=== PATIENT | female | born 1935 | race Caucasian/White ===

== ENCOUNTER 2017-07-10 19:03 | Inpatient (IN) | payer MEDICARE, MEDICAID ==
[~2017-07-10] VITALS: Ht 157.4 cm; Wt 65.9 kg
--- NOTE | ~2017-07-10 | PR ---
[place], [place] PROGRESS NOTE NAME: TAHMINA GARZA UNIT #: [id number] ROOM: 310 DOCTOR: PARIS SANFORD DO BIRTHDATE: [birth year] DOS: 07/17/2017 CHIEF COMPLAINT: "Good morning." SUMMARY OF THE VISIT: The patient was interviewed in the dining dougherty while sitting in a wheelchair. The patient's eyes were closed during the entire interview process. When asked if she could open her eyes, the patient states aha, but does not actually open her eyes. Per nursing, the patient continues to have poor p.o. intake and now has progressed to where the patient has started spitting food, liquids as well as medications. Nursing also stated that the patient did not really move at all yesterday. The patient herself is very vague in answering questions. When asked if she slept well, she only responded with okay. MENTAL STATUS EXAMINATION: The patient is alert and oriented to person, but not to place or time. Mood is labile. There is no michael or hypomania. No gross psychotic symptoms. Short-term memory is very poor. PLAN: 1. Renew Ativan. 2. Decrease Risperdal to 0.5 grams at bedtime. 3. We will continue to engage the patient in individual and mendoza milieu activity, returning to the least restrictive environment when psychiatrically stable. Discharge will depend on medical and psychiatric status at that time. ADDENDUM Dr. Garcia 07/26/17 10:48 am: Above note reviewed. Agree with observations, recommendations, and overall treatment plan. Paris Sanford DO [place], [place] PROGRESS NOTE NAME: TAHMINA GARZA UNIT #: [id number] ROOM: 310 DOCTOR: PARIS SANFORD DO BIRTHDATE: [birth year] LISBETH GARCIA MD CM:PNSAMI [id number] PARIS SANFORD DO 07/26/17 1054 COSME PRINGLE MIS.LLR
--- NOTE | ~2017-07-10 | CON ---
[place], [place] REPORT OF CONSULTATION NAME: TAHMINA GARZA UNIT #: [id number] ROOM: 310 DOCTOR: ANGELA BROWN ED.D (ESME) BIRTHDATE: [birth year] DOS: 07/16/2017 HISTORY OF PRESENT ILLNESS: The patient is an 82-year-old female referred by Dr. Evans for competency evaluation. At the present time, this patient is on the [facility] at [facility]. She states she does have 2 children, but believes they are 12 years old. She does not know who her family physician is. She has been residing at [facility] in [place], [place]. Her medical history is pertinent for dementia with behavioral disturbance, hyperlipidemia, coronary artery disease, GERD, hypertension, hypothyroidism, osteoarthritis, vitamin D deficiency, pseudobulbar effect and thyroid disease. MEDICATIONS: Include Exelon patch, Namenda, Risperdal, atorvastatin, losartan, hydrochlorothiazide, Synthroid. She has no history of drugs and alcohol, but did smoke at one time, but quit many years ago. She was awake, alert and oriented to person only. She had no idea where she was or what year it was or how old she is. She had no idea where she lives at this time. She has no idea where her children are. She is clearly demented. She became extremely agitated at the half-way recently and was transferred for inpatient care and psychiatric stabilization. 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 RECOMMENDATIONS: In my opinion, this patient needs a guardian. Thank you very much for this consult. ANGELA BROWN ED.D CM:CONSTR:REPORT OF CONSULTATION 1147 07/16/17 6307 interface LISBETH EVANS MD
--- NOTE | ~2017-07-10 | PR ---
[place], [place] PROGRESS NOTE NAME: TAHMINA GARZA UNIT #: [id number] ROOM: 310 DOCTOR: LISBETH GARCIA MD BIRTHDATE: [birth year] DOS: 07/15/2017 CHIEF COMPLAINT: "I am tired." SUMMARY OF THE VISIT: The patient was interviewed as she was resting quietly in bed. She engaged in brief conversation, was rather dismissive because she seems so tired. Nurses report, she had a very bad night and tossed and turned and was somewhat agitated. She is tolerating the current medication regimen well and notes no side effects from the medicines themselves. MENTAL STATUS: She is alert and oriented to person, possibly place, not time. Mood does seem to be trending towards euthymia and affect is more appropriate. There is no michael or hypomania. No gross psychosis. Short term memory is exceedingly poor. PLAN: I will change her Risperdal from 0.5 in the morning and 1 mg at night, just at bedtime and utilize a [address], we will lessen the possibility of daytime somnolence and improves sedation at nighttime when she needs it. LISBETH GARCIA MD CM:PNTRANS [phone] LISBETH GARCIA MD 07/15/17 4781 interface
--- NOTE | ~2017-07-10 | WRIGHTHP ---
[place], [place] PATIENT HISTORY AND PHYSICAL EXAM NAME: TAHMINA GARZA UNIT #: [id number] ROOM: 310 DOCTOR: LISBETH GARCIA MD BIRTHDATE: [birth year] DOS: 07/11/2017 CHIEF COMPLAINT: "I don't know why I am here." HISTORY OF PRESENT ILLNESS: This is an 82-year-old white female who resides at [facility] in [place], [place]. The patient was seen on the day prior to her admission by the nurse practitioner, Keshia Rothman, who evaluated her and found her to have significant altered mental status. The patient has been escalating over the last several weeks, culminating in her attempting to elope the facility by climbing out of a window. Attempts to redirect her were met with her becoming increasingly verbal and physically aggressive towards staff and even threatening patients there. Because her behavior has continued to spiral out of control to the point where she is putting both herself and other individuals at risk for harm. She was sent here to be evaluated to rule out organic factors, to stabilize on medication, returning then to the least restrictive environment when psychiatrically stable. PAST MEDICAL HISTORY: Remarkable for Alzheimer's dementia, coronary artery disease, generalized anxiety disorder, GERD, hyperlipidemia, hypertension, hypothyroidism, osteoarthritis, vitamin D deficiency, and pseudobulbar affect. SOCIAL HISTORY: The patient does not consume alcohol use, illicit drugs. She is a former cigarette smoker. ALLERGIES: She lists no known allergies. STRENGTHS: She has good verbal skills and she lives in a very supportive environment. MENTAL STATUS: The patient is alert and oriented to person, possibly place, certainly not time. Her responses this morning were rather vague and superficial and she tended to be rather dismissive and minimizing of any issues. She was pleasant, however, and did not exhibit any agitation or aggression towards me during the interview. I did not see the presence of any hypomania or michael. Likewise I saw no auditory or visual hallucinations. She does process slowly and short-term memory continues to be somewhat problematic. DIAGNOSIS: Brief psychotic disorder. PLAN: At this point, routine screening examinations have been done to rule out organic factors. She has been started on Exelon patch 4.6 mg a day and Namenda 5 mg a day in order to impact positively on ADL maintenance, behavior and cognition. Additionally, she has remained on Risperdal 0.5 mg twice daily to combat the mood lability and combativeness. We will engage her in individual and mendoza milieu activity, returning then to the least restrictive environment when psychiatrically stable. [place], [place] PATIENT HISTORY AND PHYSICAL EXAM NAME: TAHMINA GARZA UNIT #: [id number] ROOM: 310 DOCTOR: LISBETH GARCIA MD BIRTHDATE: [birth year] LISBETH GARCIA MD CM:HISPHYS:PATIENT HISTORY AND PHYSICAL EXAMINATION [id number] LISBETH GARCIA MD 07/11/17 1024 interface
--- NOTE | ~2017-07-10 | DS ---
[place], [place] DISCHARGE SUMMARY NAME: TAHMINA GARZA UNIT #: [id number] ROOM: 310 DOCTOR: LISBETH GARCIA MD BIRTHDATE: [birth year] DOS: 07/18/2017 CHIEF COMPLAINT: "I don't know why I am here." HISTORY OF PRESENT ILLNESS: This is an 82-year-old white female who resides at [facility][1] in [place], [place]. The patient was seen on the day prior to her admission by the nurse practitioner, Keshia Rothman who evaluated her and found her to have significant altered mental status. The patient has been escalating over the last several weeks, culminating in her attempting to elope the facility by climbing out a window. Attempts to redirect her were met with her becoming increasingly verbal and physically aggressive towards staff and even threatening the patients there. Because her behavior has continued to spiral out of control to the point where she is putting both herself and other individuals at risk for harm, she was sent to be evaluated here to rule out organic factors, to stabilize on medication, to engage in individual and mendoza milieu activity, returning then to the least restrictive environment when psychiatrically stable. PAST MEDICAL HISTORY: Remarkable for Alzheimer's dementia, coronary artery disease, generalized anxiety disorder, GERD, hyperlipidemia, hypertension, hypothyroidism, osteoarthritis, vitamin D deficiency, and pseudobulbar affect. SUMMARY: The patient does not consume alcohol, use illicit drugs. She is a former cigarette smoker. ALLERGIES: She lists no allergies. STRENGTHS: She has good verbal skills and lives in a supportive environment. WEAKNESSES: She is grossly confused and has many medical comorbidities. SUMMARY of her stay: The patient was admitted to the unit where she was started on Exelon patch 4.6 mg daily and Namenda 5 mg a day in order to impact positively on ADL maintenance, behavior and cognition. Additionally, she was maintained on Risperdal 0.5 mg twice daily. The Risperdal dose was gradually increased during her stay to a maximum of 0.5 mg in the morning and 2 mg at nighttime. Simultaneously both the Exelon patch and the Namenda were increased to their maximum doses with the Exelon patch ultimately being stabilized at 13.3 mg daily and Namenda to 10 mg twice daily. While on the higher dose of Risperdal, the patient did exhibit excess sedation, daytime somnolence and some mild drooling due to extrapyramidal symptoms. At that point in time, the dose of the Risperdal was significantly pulled back down to just 0.5 mg at bedtime. With these medications intact, the patient became much more compliant. She did not attempt to elope the facility. She was not verbally or physically aggressive. She was able to be redirected with verbal prompts. The patient had improved sufficiently then to return back to [facility][1] on 07/18/2017. MENTAL STATUS AT DISCHARGE: The patient is alert and oriented to self. Unclear if she realizes she is in the hospital. She is certainly not oriented to time. Mood for the most part is euthymic. Affect is appropriate. There is no symptom [place], [place] DISCHARGE SUMMARY NAME: TAHMINA GARZA UNIT #: [id number] ROOM: 310 DOCTOR: LISBETH GARCIA MD BIRTHDATE: [birth year] suggestive of michael, hypomania or gross psychotic symptoms. She does process conversation slowly and short term memory continues to be problematic. DIAGNOSES UPON DISCHARGE: Brief psychotic disorder and Alzheimer's dementia. DISPOSITION: The patient is to return to [facility][1]. Her prescriptions have been E-scribed to [facility] pharmacy. She is medically stable, psychiatrically stable. She is at her maximum point at this point of being able to attend to her ADLs and her biopsychosocial needs are adequately being met by her family as well as the long-term care facility to which she is returning. LISBETH GARCIA MD CM:DISCHARG [id number] LISBETH GARCIA MD 07/18/17 1225 interface
--- NOTE | ~2017-07-10 | PR ---
[place], [place] PROGRESS NOTE NAME: TAHMINA GARZA UNIT #: [id number] ROOM: 310 DOCTOR: LISBETH GARCIA MD BIRTHDATE: [birth year] DOS: 07/14/2017 CHIEF COMPLAINT: "Morning." SUMMARY OF THE VISIT: The patient was interviewed as she sat in a wheelchair in the dining area amongst female peers. She was watching TV and episodically dozing. She did awake and make eye contact and wished me good morning. Otherwise, she voiced no other complaint. There was no agitation or aggression noted. MENTAL STATUS: She remains alert and oriented to self only. It is unclear if she realizes she is in the hospital. She is certainly not oriented to time. Mood does seem to be trending towards euthymia. Affect is more appropriate. There is no michael or hypomania, psychosis or delusions or paranoia. Short-term memory continues to be very poor. PLAN: I will maximize out her Namenda dose to 10 mg b.i.d., augmenting the effectiveness of Exelon patch at 13.3 mg a day. We will engage in individual and mendoza milieu activity, returning to the least restrictive environment when psychiatrically stable. LISBETH GARCIA MD CM:PNTRANS [id number] LISBETH GARCIA MD 07/14/17 1420 interface
--- NOTE | ~2017-07-10 | PR ---
[place], [place] PROGRESS NOTE NAME: TAHMINA GARZA UNIT #: [id number] ROOM: 310 DOCTOR: LISBETH GARCIA MD BIRTHDATE: [birth year] DOS: 07/16/2017 CHIEF COMPLAINT: "Morning." SUMMARY OF THE VISIT: The patient was interviewed as she was resting quietly in bed. She did awake enough to make eye contact when I called her name and did wish me good morning, but otherwise was very vague and superficial and avoidant. Nurses report she continues to have some periods of increased mood lability and agitation. MENTAL STATUS: She is alert and oriented to self, unclear place, not time. Mood is still labile. Affect at times is inappropriate. There is no michael or hypomania. No gross psychotic symptoms. She does sundown and becomes increasingly more confused in the late afternoon and early evening. Short-term memory remains problematic. PLAN: I will check her vitamin B12 level just to complete the organic workup, engage in individual and mendoza milieu activity, maintaining current psychotropic regimen and discharging to the least restrictive environment. LISBETH GARCIA MD CM:PNTRANS [phone] LISBETH GARCIA MD 07/16/172220 interface
--- NOTE | ~2017-07-10 | PR ---
[place], [place] PROGRESS NOTE NAME: TAHMINA GARZA UNIT #: [id number] ROOM: 310 DOCTOR: LISBETH GARCIA MD BIRTHDATE: [birth year] DOS: 07/12/2017 CHIEF COMPLAINT: "I had redwood for breakfast, I have been here 3 weeks already." SUMMARY OF THE VISIT: The patient was interviewed as she was resting quietly in bed. She was pleasant upon approach, but very confused and disjointed in her thinking. She reported that she has been here 3 weeks. She also reported that she had breakfast and had redwood or something along those lines. She would discuss the fact that her family was making certain that animals did not get in here, in essence she made little to no sense, but was pleasant in conversing. Nurses do report, however, that in the evening she was extremely exit seeking and attempted to elope the facility on multiple times, requiring significant redirection attempts. She is tolerating the current medication regimen well without any apparent side effects. MENTAL STATUS: She is alert and oriented to person, uncertain if she knows she is in [facility] and she is certainly not oriented to time. Mood this morning was fairly pleasant. Her thoughts; however, are disconnected and disjointed and fragmented. She does have a significant amount of processing difficulty and short term memory continues to be very problematic. PLAN: I will go ahead and increase Namenda from 5 mg a day to 5 mg twice a day while simultaneously increasing the Exelon patch from 4.6 mg daily to 9.5 mg daily. I will also increase the nighttime dose of Risperdal, bringing the total dose to 0.5 mg in the morning and 1 mg at bedtime, engage in individual and mendoza milieu activity with the plan to return to the least restrictive environment when psychiatrically stable. LISBETH GARCIA MD CM:PNTRANS [id number] LISBETH GARCIA MD 07/12/17 1354 interface
--- NOTE | ~2017-07-10 | PR ---
[place], [place] PROGRESS NOTE NAME: TAHMINA GARZA UNIT #: [id number] ROOM: 310 DOCTOR: LISBETH GARCIA MD BIRTHDATE: [birth year] DOS: 07/13/2017 CHIEF COMPLAINT: "Oh Mazin takes care of everything for me, thank you for stopping." SUMMARY OF THE VISIT: The patient was interviewed once again as she was resting quietly in bed. She engaged readily in conversation. She was fairly euthymic on approach, but very confused. She reports that she has been here weeks if not months and that most recently Mazin, her , just left her room in order to take care of business. She was rather dismissive in not needing anything and did not want to get up to have breakfast or have anything to drink. She was pleasant, however, and did not exhibit any agitation, aggression or mood lability. MENTAL STATUS: She remains alert and oriented to self, possibly place, although I am not certain she realizes she is in the hospital and she is certainly not oriented to time. Mood for the most part is euthymic. Affect is appropriate. She remains grossly confused and disjointed in her thinking. There is no michael, hypomania or gross psychotic symptoms. Short-term memory remains exceptionally poor. PLAN: I will go ahead and simultaneously increase both the Exelon patch and Namenda, bringing Exelon patch to its maximum dose of 13.3 mg a day and increasing Namenda to 10 mg in the morning and 5 mg at bedtime. We will continue to engage in individual and mendoza milieu activity with the plan to return to the least restrictive environment when psychiatrically stable. LISBETH GARCIA MD CM:PNTRANS [id number] LISBETH GARCIA MD 07/14/17 0317 interface
[2017-07-11 03:53] VITALS: BP 119/85; BP 199/85
[2017-07-11] MEDS ORDERED: ASPIR LOW81 MG PO (03:56)
[2017-07-11] MEDS ORDERED: LIPITOR10 MG PO (03:56)
[2017-07-11] MEDS ORDERED: LEVOXYL88 MCG PO (03:57)
[2017-07-11] MEDS ORDERED: ATIVAN1 MG PO (03:58)
[2017-07-11 03:59] VITALS: BP 119/85
[2017-07-11] MEDS ORDERED: BENICAR HCT 201 EACH PO (03:59)
[2017-07-11] MEDS ORDERED: VITAMIN D31000 UNI1 PO (04:00)
[2017-07-11] MEDS ORDERED: ATIVAN0.5 MG PO (04:01)
[2017-07-11] MEDS ORDERED: DEPAKOTE250 MG PO (04:04)
[2017-07-11] MEDS ORDERED: RISPERDAL0.5 MG PO (04:05)
[2017-07-11 04:08] LABS: THYROID STIM HORMONE (HS) 2.35 uIU/ml (0.358-4.75)
[2017-07-11 06:47] LABS: VITAMIN D, 25-HYDROXY 44.7 ng/mL (30-100)
[2017-07-11 07:41] VITALS: BP 118/70
[2017-07-11 20:04] VITALS: BP 120/75
[2017-07-12 06:55] LABS: CREATININE 1.54 mg/dL (0.55-1.02); POTASSIUM 4.2 mmol/L (3.5-5.1)
[2017-07-12 07:38] VITALS: BP 105/76
[2017-07-12 19:40] VITALS: BP 133/60
[2017-07-13 07:37] VITALS: BP 128/67
[2017-07-13 20:08] VITALS: BP 138/62
[2017-07-14 07:59] VITALS: BP 125/79
[2017-07-14 20:29] VITALS: BP 128/66
[2017-07-15 07:55] VITALS: BP 132/64
[2017-07-15 19:51] VITALS: BP 131/58
[2017-07-16 07:41] VITALS: BP 134/62
[2017-07-16 19:48] VITALS: BP 107/63
[2017-07-17 07:53] VITALS: BP 116/73
[2017-07-17 20:00] VITALS: BP 119/74
[2017-07-18 08:28] VITALS: BP 124/66
[2017-07-18] MEDS ORDERED: RISPERIDONE0.5 MG PO (10:55)
[2017-07-18] MEDS ORDERED: EXELON13.3 MG/21 T (10:55)
[2017-07-18] MEDS ORDERED: MEMANTINE HCL10 MG PO (10:55)
== END 2017-07-18 15:53 | disposition other institution (70) | DRG 885 ==
LOC: 3N 19:03
PROVIDERS: Internal Medicine Nephrology; Psychiatry & Neurology Psychiatry
DX: F23 Brief psychotic disorder (principal); E11.65 Type 2 diabetes mellitus with hyperglycemia; G30.9 Alzheimer's disease, unspecified; F02.81 Dementia in other diseases classified elsewhere, unspecified severity, with behavioral disturbance; D72.810 Lymphocytopenia; E66.3 Overweight; E55.9 Vitamin D deficiency, unspecified; I12.9 Hypertensive chronic kidney disease with stage 1 through stage 4 chronic kidney disease, or unspecified chronic kidney disease; F41.1 Generalized anxiety disorder; F48.2 Pseudobulbar affect; F32.9 Major depressive disorder, single episode, unspecified; I25.10 Atherosclerotic heart disease of native coronary artery without angina pectoris; K21.9 Gastro-esophageal reflux disease without esophagitis; N18.3 Chronic kidney disease, stage 3 (moderate); E03.9 Hypothyroidism, unspecified; M19.90 Unspecified osteoarthritis, unspecified site; E78.5 Hyperlipidemia, unspecified; F17.210 Nicotine dependence, cigarettes, uncomplicated; Z85.820 Personal history of malignant melanoma of skin; Z79.82 Long term (current) use of aspirin; Z79.899 Other long term (current) drug therapy; Z68.26 Body mass index [BMI] 26.0-26.9, adult

== ENCOUNTER 2017-07-11 01:09 | Emergency (ER) | payer MEDICARE, MEDICAID ==
[~2017-07-11] VITALS: Wt 72.6 kg
[2017-07-11 01:42] LABS: BASO # 0.1 10*3/uL (0.0-0.1); BASO % 0.9 % (0.0-1.0); EOS # 0.4 10*3/uL (0.0-0.4); EOS % 4.5 % (1.0-4.0); HEMATOCRIT 40.1 % (37.0-47.0); HEMOGLOBIN 13.1 g/dl (12.0-16.0); LYMPH % 25.2 % (27.0-41.0); MEAN CELL VOLUME 99.3 fl (81.0-99.0); MEAN CORPUSCULAR HGB 32.4 pg (27.0-31.0); MEAN CORPUSCULAR HGB CONC 32.7 g/dl (33.0-37.0); MEAN PLATELET VOLUME 9.9 fl (9.6-12.3); MONO # 0.9 10*3/uL (0.1-1.0); MONO % 11.2 % (3.0-9.0); NEUT # 4.5 10*3/uL (2.3-7.9); NEUT % 57.7 % (47.0-73.0); PLATELET COUNT AUTOMATED 277 10*3/uL (130-400); RED BLOOD COUNT 4.04 10*6/uL (4.10-5.10); RED CELL DISTRI WIDTH 13.2 % (0-14.5); WHITE BLOOD COUNT 7.9 10*3/uL (4.8-10.8)
[2017-07-11 02:02] LABS: ACETAMINOPHEN (TYLENOL) < 2.0 ug/ml (10-30); ALBUMIN 3.2 gm/dl (3.1-4.5); ALKALINE PHOSPHATASE 90 U/L (45-117); BUN 25 mg/dl (7-24); CHLORIDE 103 mmol/L (98-107); CREATININE 1.67 mg/dL (0.55-1.02); ETHYL ALCOHOL < 3.0 mg/dl (<3); POTASSIUM 3.9 mmol/L (3.5-5.1); SGOT/AST 18 IU/L (3-35); SGPT/ALT 18 U/L (12-78); SODIUM 139 mmol/L (136-145); TOTAL PROTEIN 7.2 gm/dL (6.4-8.2)
[2017-07-11 02:58] LABS: BILIRUBIN NEGATIVE (NEGATIVE); BLOOD NEGATIVE (NEGATIVE); CLARITY CLEAR (CLEAR); COLOR YELLOW (YELLOW); GLUCOSE TRACE (NEGATIVE); KETONE NEGATIVE (NEGATIVE); LEUKO ESTERASE NEGATIVE (NEGATIVE); NITRITE NEGATIVE (NEGATIVE); SPECIFIC GRAVITY 1.015 (1.005-1.030); UROBILINOGEN 0.2 E.U./dl (0.2-1.0)
[2017-07-11 03:07] LABS: URINE AMPHETAMINES < 1000 (1000ng/ml); URINE BARBITURATES < 200 (200ng/ml); URINE BENZODIAZEPINES < 200 (200ng/ml); URINE CANNABINOIDS (THC) < 50 (50ng/ml); URINE COCAINE < 300 (300ng/ml); URINE METHADONE < 300 (300ng/ml); URINE OPIATES < 300 (300ng/ml)
[2017-07-11 03:10] LABS: WBC 0-2 wbc/hpf (0-5)
[2017-07-11 03:11] LABS: URINE PHENCYCLIDINE < 25 (25ng/ml)
[2017-07-11] MEDS ORDERED: LIPITOR10 MG PO (03:56)
[2017-07-11] MEDS ORDERED: ASPIR LOW81 MG PO (03:56)
[2017-07-11] MEDS ORDERED: LEVOXYL88 MCG PO (03:57)
[2017-07-11] MEDS ORDERED: ATIVAN1 MG PO (03:58)
[2017-07-11] MEDS ORDERED: BENICAR HCT 201 EACH PO (03:59)
[2017-07-11] MEDS ORDERED: VITAMIN D31000 UNI1 PO (04:00)
[2017-07-11] MEDS ORDERED: ATIVAN0.5 MG PO (04:01)
[2017-07-11] MEDS ORDERED: DEPAKOTE250 MG PO (04:04)
[2017-07-11] MEDS ORDERED: RISPERDAL0.5 MG PO (04:05)
== END 2017-07-11 03:59 | disposition home health service (06) ==
LOC: ED 01:09
PROVIDERS: Emergency Medicine Emergency Medical Services
DX: F23 Brief psychotic disorder (principal)